=== PATIENT | male | born 1960 | race Hispanic/Latino ===

== ENCOUNTER 2022-03-13 09:27 | Emergency (ER) | payer BC, OTHER ==
[2022-03-13] MEDS ORDERED: Fluorescein Opthalmic Strip ONE (11:09)
[2022-03-13] MEDS ORDERED: Proparacaine 0.5% Opth 15 ML BOT ONE (11:09)
== END 2022-03-13 13:04 | disposition home or self-care (01) ==
LOC: ERS 09:27
DX: B00.89 Other herpesviral infection (principal); J11.1 Influenza due to unidentified influenza virus with other respiratory manifestations; E78.00 Pure hypercholesterolemia, unspecified
CPT/HCPCS: 99283